=== PATIENT | male | born 1975 | race Caucasian/White ===

== ENCOUNTER 2024-04-19 18:19 | Emergency (ER) | payer MEDICAID ==
[~2024-04-19] VITALS: Ht 167.6 cm; Wt 63.0 kg
[2024-04-19 18:22] VITALS: BP 150/74; PULSE 84; RESP 18; TEMP 98.6; O2SAT 98
[2024-04-21] MEDS ORDERED: EMTR1TAB12 PO ×2 (20:37→21:57)
[2024-04-21] MEDS ORDERED: ATOR20TA65 PO (20:38)
[2024-04-21] MEDS ORDERED: DOLU50TA PO ×2 (20:39→21:57)
[2024-04-21] MEDS ORDERED: HYDR25TA PO ×2 (20:39→21:04)
== END 2024-04-19 19:04 | disposition home or self-care (01) ==
LOC: ER 18:28
DX: R59.1 Generalized enlarged lymph nodes (principal); N48.5 Ulcer of penis; I10 Essential (primary) hypertension
CPT/HCPCS: 99281